=== PATIENT | female | born 1995 | race Caucasian/White ===

== ENCOUNTER 2020-06-10 15:44 | Outpatient (REF) | payer OTHER, SELFPAY | END 2020-06-10 15:45 | disposition home or self-care (01) | LOC: HO.LAB 15:44 | PROVIDERS: Visit Provider Internal Medicine | DX: Z20.828 Contact with and (suspected) exposure to other viral communicable diseases (principal) | CPT/HCPCS: C9803; U0003 ==

== ENCOUNTER 2020-11-30 09:00 | Outpatient (REF) | payer OTHER, SELFPAY ==
[2020-11-30 09:31] LABS: COVID-19 Test Negative (Negative); IDNOW Serial# 55D5AD1C
== END 2020-11-30 09:01 | disposition home or self-care (01) ==
LOC: HO.LAB 09:00
PROVIDERS: Visit Provider Internal Medicine
DX: Z20.822 Contact with and (suspected) exposure to COVID-19 (principal)
CPT/HCPCS: 36415; 87635; C9803

== ENCOUNTER 2021-02-08 10:30 | Emergency (ER) | payer OTHER, SELFPAY ==
--- NOTE | ~2021-02-08 | XR_ITS ---
EXAMINATION: XR CHEST CLINICAL INFORMATION: Cough COMPARISON: None TECHNIQUE: Frontal view of the chest was obtained. FINDINGS: No significant abnormality is noted involving the heart, lungs, mediastinum, bony thorax or soft tissues. XR/XR chest 1V IMPRESSION: Unremarkable examination.
[2021-02-08 11:22] VITALS: BP 115/55; PULSE 95; RESP 18; TEMP 36.7; O2SAT 99; BMI 36.5
[2021-02-08 12:08] LABS: COVID-19 Test Negative (Negative)
[2021-02-08] MEDS: HYDROcodone/Homat 5/1.5/5 ML 5 ML SYRUP PO (13:01)
[2021-02-08] MEDS: Benzonatate 100 MG CAPSULE PO (13:02)
--- NOTE | 2021-02-08 13:20 | ED_ITS ---
HPI - URI/Sore Throat General Chief Complaint: Upper Respiratory Symptoms Stated Complaint: Flu like symptoms Time Seen by Provider: 02/08/21 12:16 Source: patient Mode of arrival: ambulatory History of Present Illness HPI Narrative: 25-year-old female a past medical history of asthma presenting to the ED complaining of dry cough, body aches, nasal congestion, sore throat, ear pain, headache x 4-5 days. Admits her daughter at home with similar symptoms. Reports mild SOB, and chest discomfort when coughing. Denies fever, recent travel, LE edema, history of blood clots, abdominal pain MD elicited complaint: cough, sore throat, rhinorrhea and nasal congestion Related Data Previous Rx's Medication Instructions Recorded acetaminophen [Tylenol Extra 500 mg PO Q6H PRN #20 tab 02/08/21 Strength] albuterol sulfate 2 puff INHALATION Q4-6H PRN #6.7 g 02/08/21 azithromycin See Rx Instructions .ROUTE 02/08/21 .COMPLEX #6 tab benzonatate [Tessalon Perles] 100 mg PO TID PRN #14 cap 02/08/21 fluticasone propionate [Flonase 2 spray INTRANASAL DAILY #16 g 02/08/21 Allergy Relief] hydrocodone-homatropine [Hycodan 5 ml PO Q6H PRN #473 ml 02/08/21 (with homatropine)] Allergies Allergy/AdvReac Type Severity Reaction Status Date / Time No Known Allergies Allergy Unverified 04/08/20 19:13 [No Known Allergies*] Review of Systems Review of Systems: Constitutional: No Fever, + Chills, No Night Sweats, No Fatigue, No Malaise ENT/Mouth: No Ear Pain, + Nasal Congestion, No Sinus Pain, No Hoarseness, + sore throat, + Rhinorrhea, No Swallowing Difficulty Eyes: No Eye Pain, No Vision Changes Cardiovascular: + Chest Pain when coughing, + SOB, No Edema Respiratory: + Cough, No Sputum, No Wheezing Gastrointestinal: No Nausea, No Vomiting, No Abdominal pain Musculoskeletal: No joint pain, + Myalgias, No Joint Swelling Skin: No Skin Lesions, No rash Neuro: No Weakness, +Headache Yes all other systems are reviewed and are negative PMFSH Past Medical History Attestation statement: The following information was validated with the patient. Social History Social History Advance Directives: No Advance Directives Information Provided: No Patient : No Physical Exam Vital Signs: Vital Signs: Last Vital Signs Temp 98.1 F 02/08/21 11:22 Pulse 95 02/08/21 11:22 Resp 18 02/08/21 11:22 BP 115/55 L 02/08/21 11:22 Pulse Ox 99 02/08/21 11:22 Body Mass Index 36.5 Const: General: cooperative, healthy appearing and no acute distress Orientation/consciousness: patient oriented x3 Limitations: no limitations HENMT: Head: Yes normal to inspection Ears: hearing grossly normal bilaterally and TM's normal bilaterally General nose exam: Normal external nose present Face and sinus: Yes normal facial exam Mouth: Normal oral and palatal mucosa present Throat: Yes posterior oropharynx normal, Yes tonsils normal, Yes uvula midline, No uvula laterally displaced and No uvular edema Eyes: General: appearance normal, both eyes and all related structures EOM: EOMs intact bilaterally Neck: Neck: Yes normal visual inspection Resp: Effort & Inspection: normal respiratory effort and not labored Auscultation: clear to auscultation bilaterally, no rales, no rhonchi and no wheezes Cardio: Rate: regular rate Heart sounds: S1 normal heart sound present and S2 normal heart sound present GI: Inspection: Yes normal to inspection Palpation (GI): Soft to palpation, nontender and no guarding Skin: Rashes: no rashes Wounds: no wounds Neuro: General: patient oriented x3 Gait exam (Neuro): Normal gait present Extrem: General: Yes normal to inspection, Yes no pedal edema and Yes no calf tenderness Course Course Course Narrative: XR chest 1V IMPRESSION: Unremarkable examination. -COVID-19 negative Results discussed with patient including worrisome signs and symptoms and strict return precautions, she verbalized understanding feel safe for discharge home to follow-up with her PCP MDM - URI/Sore Throat Lab Data Labs: Lab Results 02/08/21 Range/Units 11:38 COVID-19 (HEATH) Negative (Negative) COVID-19 Clin Com See Note Discharge Plan Discharge Clinical Impression: Upper respiratory infection Qualifiers: URI type: unspecified viral URI Qualified Code(s): J06.9 - Acute upper respiratory infection, unspecified Patient Disposition: Home, Self-Care Instructions: Viral Syndrome (ED) Additional Instructions: Your x-ray was unremarkable, you tested negative for COVID-19. You likely have a viral syndrome. Tessalon Perles and Hycodan cough syrup are for cough. Flonase is nasal decongestion spray. In addition use albuterol inhaler for shortness of breath/wheezing Azithromycin as an antibiotic, take as prescribed, is recommended that you wait a couple days to see if her symptoms improved prior to starting the antibiotic, we should do not initiate. If her symptoms are not improving, they are worsening/persistent you develop high fevers, constant worsening shortness breath or chest pain please return to the ED antibiotics until 7-10 days for persistent viral infections Garza radiograf?a fue normal, mayela negativo para COVID-19. Es probable que tenga un s?ndrome viral. Tessalon Perles y el jarabe para la tos Hycodan son para la tos. Flonase es un aerosol de descongesti?n nasal. Adem?s use el inhalador de albuterol para la dificultad para respirar / sibilancias Azitromicina temitope antibi?ivania, tome seg?n lo prescrito, se recomienda que espere un par de d?as para zahraa si mali s?ntomas mejoraron antes de comenzar con el antibi?ivania, no debemos iniciarlo. Si mali s?ntomas no mejoran, empeoran / persisten, desarrolla fiebre mikal, dificultad para respirar que empeora constantemente o dolor en el pecho, por favor regrese al servicio de urgencias con antibi?ticos hasta 7-10 d?as para infecciones virales persistentes. Prescriptions: New azithromycin 250 mg tablet See Rx Instructions .ROUTE .COMPLEX Qty: 6 RF: 0 albuterol sulfate 90 mcg/actuation HFA aerosol inhaler 2 puff inhalation Q4-6H PRN (Reason: shortness of breath or wheezing) Qty: 6.7 RF: 0 acetaminophen [Tylenol Extra Strength] 500 mg tablet 500 mg PO Q6H PRN (Reason: pain or fever) Qty: 20 RF: 0 benzonatate [Tessalon Perles] 100 mg capsule 100 mg PO TID PRN (Reason: cough) Qty: 14 RF: 0 fluticasone propionate [Flonase Allergy Relief] 50 mcg/actuation spray,suspension 2 spray intranasal DAILY Qty: 16 RF: 0 hydrocodone-homatropine [Hycodan (with homatropine)] 5-1.5 mg/5 mL syrup 5 ml PO Q6H PRN (Reason: cough) Qty: 473 RF: 0 Referrals: Physician,Unknown [Primary Care Provider] - 2 days Print Language: Malaysian
== END 2021-02-08 13:38 | disposition home or self-care (01) ==
PROVIDERS: Emergency Provider Emergency Medicine
DX: J06.9 Acute upper respiratory infection, unspecified (principal); Z20.822 Contact with and (suspected) exposure to COVID-19
CPT/HCPCS: 36415; 71045; 87635; 99283

== ENCOUNTER 2021-03-21 16:03 | Emergency (ER) | payer MEDICAID, SELFPAY ==
[2021-03-21 16:05] VITALS: BP 122/68; PULSE 105; RESP 18; TEMP 36.9; O2SAT 99; BMI 80.6
--- NOTE | 2021-03-21 20:38 | PC.NURSE ---
PT STATES DOES NOT WANT TO WAIT FOR PROVIDER. THIS NURSE TOLD PATIENT SHE IS NEXT TO BE SEEN. PT STATES DOES NOT WANT TO WAIT. WILL CALL PCP TOMORROW.
== END 2021-03-21 20:40 | disposition left against medical advice (07) ==
PROVIDERS: Emergency Provider Emergency Medicine
DX: M54.5 Low back pain (principal); M79.605 Pain in left leg; M79.604 Pain in right leg
CPT/HCPCS: 99281; 99282

== ENCOUNTER 2021-03-25 09:25 | Emergency (ER) | payer OTHER, SELFPAY ==
[2021-03-25 09:32] VITALS: BP 112/71; PULSE 85; RESP 18; TEMP 36.3; O2SAT 99; BMI 36.6
--- NOTE | 2021-03-25 09:40 | ED_ITS ---
HPI - Back Pain/Injury General Chief Complaint: Back Pain/Injury Stated Complaint: BACK PAIN Time Seen by Provider: 03/25/21 09:40 Source: patient Mode of arrival: ambulatory Limitations: no limitations History of Present Illness MD elicited complaint: back pain Pertinent past history: prior back pain Onset (ago): day(s) (2) Timing: constant Severity: moderate Similar Symptoms Previously: Yes Quality: aching and throbbing Location: lumbar spine Radiation: left upper leg and right upper leg Exacerbating factors: movement and walking Relieving factors: none Context: unknown Associated symptoms: denies other symptoms Work related injury: No Related Data Previous Rx's Medication Instructions Recorded acetaminophen 500 mg tablet 500 mg PO Q6H PRN #20 tab 02/08/21 (Tylenol Extra Strength) albuterol sulfate 90 mcg/actuation 2 puff INHALATION Q4-6H PRN #6.7 g 02/08/21 aerosol inhaler azithromycin 250 mg tablet See Rx Instructions .ROUTE 02/08/21 .COMPLEX #6 tab benzonatate 100 mg capsule 100 mg PO TID PRN #14 cap 02/08/21 (Tessalon Perles) fluticasone propionate 50 2 spray INTRANASAL DAILY #16 g 02/08/21 mcg/actuation nasal spray,suspension (Flonase Allergy Relief) hydrocodone-homatropine 5 mg-1.5 5 ml PO Q6H PRN #473 ml 02/08/21 mg/5 mL oral syrup (Hycodan (with homatropine)) diazepam 5 mg tablet (Valium) 5 mg PO TID PRN #10 tab 03/25/21 ibuprofen 600 mg tablet 600 mg PO Q6H PRN #30 tab 03/25/21 lidocaine 4 % topical patch 1 patch TOPICAL DAILY PRN #10 ea 03/25/21 prednisone 20 mg tablet 40 mg PO DAILY 5 Days #10 tab 03/25/21 Allergies Allergy/AdvReac Type Severity Reaction Status Date / Time No Known Allergies Allergy Unverified 04/08/20 19:13 [No Known Allergies*] Review of Systems Review of Systems: Constitutional : No Weight loss, No Fever, No Chills, ENT/Mouth : No Hearing loss, No Ear Pain, No Nasal Congestion, No Sinus Pain, No Hoarseness, No sore throat, No Rhinorrhea, No Swallowing Difficulty Cardiovascular : No Chest Pain, No SOB Respiratory : No Cough, No Dyspnea Gastrointestinal : No Nausea, No Vomiting, No Diarrhea, No abdominal Pain, No Hematochezia, No Melena Genitourinary : No Dysuria, No Urinary Frequency, No Hematuria, No Urinary Incontinence, Musculoskeletal : positive back pain Skin : No Skin Lesions, No rash Neuro : No Weakness, No Numbness, No Paresthesias, no loss of bowel or bladder incontinence, no saddle anesthesia [facility] Past Medical History Attestation statement: The following information was validated with the patient. Medical History (Updated 03/25/21 @ 09:50 by Latonya Schofield DO) Back pain Social History Social History (Updated 03/25/21 @ 09:50 by Latonya Schofield DO) Patient Tobacco Use Status: Never used Tobacco Use of substances other than those prescribed or required for medical reasons: No Advance Directives: No Advance Directives Information Provided: No Patient : No Physical Exam Vital Signs: Vital Signs: Last Vital Signs Temp 97.3 F 03/25/21 09:32 Pulse 85 03/25/21 09:32 Resp 18 03/25/21 09:32 BP 112/71 03/25/21 09:32 Pulse Ox 99 03/25/21 09:32 Body Mass Index 36.6 Appearance: Alert. Oriented X3. No acute distress. Eyes: Pupils equal, round and reactive to light. ENT: Pharynx normal. Neck: Normal inspection. Neck supple. CVS: Normal heart rate and rhythm. Pulses normal. Respiratory: No respiratory distress. Breath sounds normal. Abdomen: Soft and nontender. Back: ttp along lower lumbar spine no step offs Skin: Skin warm and dry. Normal skin color. Normal skin turgor. Extremities: No lower extremity edema. No calf ttp Neuro: Oriented X 3. No motor deficit. No sensory deficit. L5 5/5 bilaterally, SILT inner thigh MDM - Back Pain/Injury MDM Narrative Medical decision making narrative: 26 yo female otherwise healthy here with low back pain no b/b incontinence, no saddle anesthesia no IVDA - NV intact, no CE symptoms will provide PO pain control and refer to PCP Discharge Plan Discharge Clinical Impression: Strain of lumbar region Qualifiers: Encounter type: initial encounter Qualified Code(s): S39.012A - Strain of muscle, fascia and tendon of lower back, initial encounter Sciatica Qualifiers: Laterality: left Qualified Code(s): M54.32 - Sciatica, left side Patient Disposition: Home, Self-Care Instructions: Sciatica (ED), Low Back Strain (ED) Additional Instructions: return to ED for any worsening symptoms or concerns Prescriptions: New lidocaine 4 % adhesive patch,medicated 1 patch topical DAILY PRN (Reason: pain) Qty: 10 RF: 0 prednisone 20 mg tablet 40 mg PO DAILY 5 Days Qty: 10 RF: 0 ibuprofen 600 mg tablet 600 mg PO Q6H PRN (Reason: pain) Qty: 30 RF: 0 diazepam [Valium] 5 mg tablet 5 mg PO TID PRN (Reason: muscle spasm) Qty: 10 RF: 0 No Action azithromycin 250 mg tablet See Rx Instructions .ROUTE .COMPLEX Qty: 6 RF: 0 albuterol sulfate 90 mcg/actuation HFA aerosol inhaler 2 puff inhalation Q4-6H PRN (Reason: shortness of breath or wheezing) Qty: 6.7 RF: 0 acetaminophen [Tylenol Extra Strength] 500 mg tablet 500 mg PO Q6H PRN (Reason: pain or fever) Qty: 20 RF: 0 benzonatate [Tessalon Perles] 100 mg capsule 100 mg PO TID PRN (Reason: cough) Qty: 14 RF: 0 fluticasone propionate [Flonase Allergy Relief] 50 mcg/actuation spray,suspension 2 spray intranasal DAILY Qty: 16 RF: 0 hydrocodone-homatropine [Hycodan (with homatropine)] 5-1.5 mg/5 mL syrup 5 ml PO Q6H PRN (Reason: cough) Qty: 473 RF: 0 Referrals: Physician,Unknown [Primary Care Provider] - 2 days Stand Alone Forms: Work/School Release Print Language: Welsh
== END 2021-03-25 09:50 | disposition home or self-care (01) ==
LOC: HO.ED 09:49
PROVIDERS: Emergency Provider Emergency Medicine
DX: S39.012A Strain of muscle, fascia and tendon of lower back, initial encounter (principal); X58.XXXA Exposure to other specified factors, initial encounter; M54.32 Sciatica, left side; Y93.9 Activity, unspecified; Y92.9 Unspecified place or not applicable; Y99.9 Unspecified external cause status
CPT/HCPCS: 99283

== ENCOUNTER 2021-08-02 17:15 | Emergency (ER) | payer OTHER, SELFPAY ==
[2021-08-02 17:55] VITALS: BP 122/69; PULSE 99; RESP 18; TEMP 36.4; O2SAT 98; BMI 37.2
[2021-08-02 18:39] LABS: IDNOW Serial# 9DD0AD1C; Strep A Nucleic Acid Negative (Negative)
[2021-08-02 18:40] LABS: COVID-19 Test Positive (Negative)
--- NOTE | 2021-08-02 20:51 | ED_ITS ---
HPI - General Adult General Chief complaint: General Medical Stated complaint: Sore Throat, Difficulty breathing Time Seen by Provider: 08/02/21 20:51 Source: patient Mode of arrival: ambulatory Limitations: no limitations History of Present Illness HPI narrative: This is a 26-year-old female past medical history significant for asthma presenting to the emergency department with a dry cough, sore throat and shortness of breath x 4 days. Patient tells me that she feels like this is asthma. She ran out of her inhaler and that is why she is here today. She tells me that at home her and her child are sick with similar symptoms. She is vaccinated against COVID-19, she is to doses of the Lab21 vaccine. Patient denies chest pain, nausea, vomiting, abdominal pain, weakness, vision changes, dizziness, headache. Onset (ago): day(s) (4) Radiation: non-radiation Severity: moderate Pain Consistency: constant Relieving factors: none Exacerbating factors: none Associated symptoms: denies other symptoms Treatments prior to arrival: none Related Data Previous Rx's Medication Instructions Recorded acetaminophen 500 mg tablet 500 mg PO Q6H PRN #20 tab 02/08/21 (Tylenol Extra Strength) albuterol sulfate 90 mcg/actuation 2 puff INHALATION Q4-6H PRN #6.7 g 02/08/21 aerosol inhaler azithromycin 250 mg tablet See Rx Instructions .ROUTE 02/08/21 .COMPLEX #6 tab benzonatate 100 mg capsule 100 mg PO TID PRN #14 cap 02/08/21 (Tessalon Perles) fluticasone propionate 50 2 spray INTRANASAL DAILY #16 g 02/08/21 mcg/actuation nasal spray,suspension (Flonase Allergy Relief) hydrocodone-homatropine 5 mg-1.5 5 ml PO Q6H PRN #473 ml 02/08/21 mg/5 mL oral syrup (Hycodan (with homatropine)) diazepam 5 mg tablet (Valium) 5 mg PO TID PRN #10 tab 03/25/21 ibuprofen 600 mg tablet 600 mg PO Q6H PRN #30 tab 03/25/21 lidocaine 4 % topical patch 1 patch TOPICAL DAILY PRN #10 ea 03/25/21 prednisone 20 mg tablet 40 mg PO DAILY 5 Days #10 tab 03/25/21 ProAir HFA 90 mcg/actuation 2 inh INHALATION Q6H PRN #8.5 g NS 08/02/21 aerosol inhaler (albuterol sulfate) benzonatate 100 mg capsule 100 mg PO BID PRN #20 cap 08/02/21 Allergies Allergy/AdvReac Type Severity Reaction Status Date / Time No Known Allergies Allergy Unverified 04/08/20 19:13 [No Known Allergies*] Review of Systems Review of Systems: Constitutional : positive Fever, positive Chills, positive fatigue, positive Malaise ENT/Mouth : positive sore throat, positive runny nose Eyes: No Discharge Cardiovascular : No Chest Pain, positive SOB Respiratory : positive Cough, No Sputum Gastrointestinal : No Nausea, No Vomiting, No Diarrhea Genitourinary : No Dysuria, No Urinary Frequency Musculoskeletal : positive Myalgia Skin : No rash Neuro : No Headache Yes all other systems are reviewed and are negative [facility] Past Medical History Attestation statement: The following information was validated with the patient. Source: old records reviewed and nursing notes reviewed Medical History Back pain Social History Social History Patient Tobacco Use Status: Never used Tobacco Advance Directives: No Advance Directives Information Provided: Yes Patient : No Physical Exam Vital Signs: Vital Signs: Last Vital Signs Temp 97.6 F 08/02/21 17:55 Pulse 99 08/02/21 17:55 Resp 18 08/02/21 17:55 BP 122/69 08/02/21 17:55 Pulse Ox 98 08/02/21 17:55 BMI result Body Mass Index 37.2 VSS Appearance: Alert.? Oriented X3.? No acute distress.? Nonlabored breathing, no use of accessory muscles. Patient periodically coughing with a dry nonproductive cough she appears well no acute distress Head: Normocephalic, atraumatic, no step-offs or deformities Eyes: Pupils equal, round and reactive to light.? ENT: Pharynx normal.? Neck: Normal inspection.? Neck supple.? CVS: Normal heart rate and rhythm.? Pulses normal.? Respiratory: No respiratory distress.? Breath sounds normal.? Abdomen: Soft and nontender.? Skin: Skin warm and dry.? Normal skin color.? Normal skin turgor.? Extremities: No lower extremity edema.? No calf ttp. 5/5 strength to bilateral upper and lower extremities Back: No midline tenderness, no C-spine tenderness, full range of motion, no CVA tenderness bilaterally Neuro: Oriented X 3.? No motor deficit.? No sensory deficit. Course Reevaluation(s) Reevaluation #1: Patient noted to be COVID +. Educated patient on diagnosis, answered all questions. I have advised her return with new or worsening symptoms. I have outlined these on her discharge. At this time vital signs are stable, no chest pain, unlikely ACS. Unlikely PE, patient is not tachycardic, no hypoxia, negative Homans sign on exam. Unlikely pneumonia, lungs are clear. At this time I feel comfortable discharge home. Time: 20:53 Medical Decision Making MDM Narrative Medical decision making narrative: 2048 26 yo f presents to ed w/ covid like sx X4 days. Reports family members at home are sick with similar symptoms. She is vaccinated with 2 doses of the Lab21 vaccine. Denies chest pain, she tells me her chest feels uncomfortable when she coughs however. Unlikely ACS. PE benign. Vital signs stable. Patient is not hypoxic, tachypneic or tachycardic, negative Azra sign bilaterally unlikely PE. Lungs are clear, unlikely pneumonia. Plan- covid test. No need for imaging at this time, patient's lungs are clear.VSS. Medical Records Medical records reviewed: Yes I reviewed the patient's medical records. Lab Data Lab results reviewed: Yes I reviewed the patient's lab results. Labs: Lab Results 08/02/21 08/02/21 Range/Units 18:16 18:16 COVID-19 (HEATH) Positive A (Negative) COVID-19 Clin Com See Note S. pyogenes GrpA JARETT Negative (Negative) Critical Care Time Critical Care Time Critical Care Time: No Discharge Plan Discharge Clinical Impression: COVID-19 Patient Disposition: Home, Self-Care Instructions: COVID-19 (Coronavirus Disease 2019) (ED) Additional Instructions: Take your medications as prescribed. If you were prescribed antibiotics today, it is important that you take your medication to their entirety, do not skip any doses, do not finish them early. Today you tested positive for COVID-19. Take Ibuprofen or Tylenol as needed for fevers or body aches. Quarantine for 7 days and ensure you wear a mask. After 7 days you should wear a mask for 3 days after that. Practice social distancing and good hand hygiene. Drink plenty of fluids. You can take ibuprofen every 6 hours, Tylenol every 4 pain Follow-up with your primary care provider this week. Return to the emergency department with new or worsening symptoms. Such as shortness of breath, chest pain, fevers, chills, nausea, vomiting, abdominal pain, headache, dizziness or weakness. In case of emergency call 911 You can purchase a pulse oximeter from your local pharmacy or grocery store, and monitor your oxygen saturation if it goes below 94% you should return to the emergency department for further evaluation. If You Test Positive for COVID-19 (Isolate) Everyone, regardless of vaccination status. * Stay home for 5 days. * If you have no symptoms or your symptoms are resolving after 5 days, you can leave your house. * Continue to wear a mask around others for 5 additional days. If you have a fever, continue to stay home until your fever resolves. If You Were Exposed to Someone with COVID-19 (Quarantine) If you: Have been boosted OR Completed the primary series of Pfizer or Moderna vaccine within the last 6 months OR Completed the primary series of J&J vaccine within the last 2 months * Wear a mask around others for 10 days. * Test on day 5, if possible. If you develop symptoms get a test and stay home. If you: Completed the primary series of Pfizer or Moderna vaccine over 6?months ago and are not boosted OR Completed the primary series of J&J over 2 months ago and are not boosted OR Are unvaccinated * Stay home for 5 days. After that continue to wear a mask around others for 5 additional days. * If you can?t quarantine you must wear a mask for 10 days. * Test on day 5 if possible. If you develop symptoms get a test and stay home Prescriptions: New benzonatate 100 mg capsule 100 mg PO BID PRN (Reason: cough) Qty: 20 RF: 0 albuterol sulfate [ProAir HFA] 90 mcg/actuation HFA aerosol inhaler 2 inh inhalation Q6H PRN (Reason: shortness of breath or wheezing) Qty: 8.5 RF: 0 No Action lidocaine 4 % adhesive patch,medicated 1 patch topical DAILY PRN (Reason: pain) Qty: 10 RF: 0 prednisone 20 mg tablet 40 mg PO DAILY 5 Days Qty: 10 RF: 0 ibuprofen 600 mg tablet 600 mg PO Q6H PRN (Reason: pain) Qty: 30 RF: 0 diazepam [Valium] 5 mg tablet 5 mg PO TID PRN (Reason: muscle spasm) Qty: 10 RF: 0 azithromycin 250 mg tablet See Rx Instructions .ROUTE .COMPLEX Qty: 6 RF: 0 albuterol sulfate 90 mcg/actuation HFA aerosol inhaler 2 puff inhalation Q4-6H PRN (Reason: shortness of breath or wheezing) Qty: 6.7 RF: 0 acetaminophen [Tylenol Extra Strength] 500 mg tablet 500 mg PO Q6H PRN (Reason: pain or fever) Qty: 20 RF: 0 benzonatate [Tessalon Perles] 100 mg capsule 100 mg PO TID PRN (Reason: cough) Qty: 14 RF: 0 fluticasone propionate [Flonase Allergy Relief] 50 mcg/actuation spray,suspension 2 spray intranasal DAILY Qty: 16 RF: 0 hydrocodone-homatropine [Hycodan (with homatropine)] 5-1.5 mg/5 mL syrup 5 ml PO Q6H PRN (Reason: cough) Qty: 473 RF: 0 Referrals: Physician,Unknown J [Primary Care Provider] - 2 days Stand Alone Forms: Work/School Release
== END 2021-08-02 21:30 | disposition home or self-care (01) ==
PROVIDERS: Emergency Provider Emergency Medicine
DX: U07.1 COVID-19 (principal); J02.9 Acute pharyngitis, unspecified; R06.02 Shortness of breath; Z79.899 Other long term (current) drug therapy
CPT/HCPCS: 36415; 87635; 87651; 99283